=== PATIENT | male | born 1990 | race African-American/Black ===

== ENCOUNTER 2016-10-02 18:57 | Emergency (ER) | payer SELFPAY ==
[~2016-10-02 18:57] MED LIST: Iopamidol 370 76% 100 ML VIAL ONE
[2016-10-02] MEDS ORDERED: Ibuprofen 200 MG TAB ONE (19:38)
[2016-10-02 19:43] LABS: #Basophils 0.1 thou/uL (0.0-0.2); #Eosinphils 0.1 thou/uL (0.0-0.7); #Lymphocytes 2.5 thou/uL (1.20-3.40); #Monocytes 0.4 thou/uL (0.11-0.59); #Neutrophils 3.9 thou/uL (1.40-6.50); %Basophils 1.7 % (0.0-1.0); %Eosinophils 1.1 % (0.0-10.0); %Lymphocytes 35.6 % (21.0-51.0); %Monocytes 5.3 % (0.0-10.0); %Neutrophils 56.3 % (42.0-75.0); Hemoglobin 14.2 g/dL (14.0-18.0); Mean Corpuscular HGB CONC 33.7 g/dL (32.0-36.0); Mean Corpuscular Hemoglobin 33.3 pg (27.0-31.0); Mean Corpuscular Volume 98.9 fl (80.0-94.0); Mean Platelet Volume 11.3 fL (7.4-10.4); Platelet Count 161 thou/uL (130-400); RBC Distribution Width 13.6 % (11.5-14.5); Red Blood Cell (RBC) Count 4.26 mill/uL (4.70-6.10); White Blood Cell (WBC) Count 6.9 thou/uL (4.8-10.8)
[2016-10-02 19:57] LABS: ALT (SGPT) 10 U/L (0-55); AST (SGOT) 15 U/L (5-34); Albumin 3.7 g/dL (3.5-5.0); Alkaline Phosphatase 74 U/L (40-150); Anion Gap 15 mmol/L (10-20); BUN (Urea Nitrogen) 9 mg/dL (8.9-20.6); Bilirubin, Total 0.3 mg/dL (0.2-1.2); Calc. Creatinine Clearance 0 mL/min (70-130); Calcium 9.8 mg/dL (7.8-10.44); Carbon Dioxide 24 mmol/L (22-29); Chloride 105 mmol/L (98-107); Estimated GFR-MDRD Greater than 90; Globulin 2.8 g/dL (2.4-3.5); Glucose 100 mg/dL (70-105); Lipase 21 U/L (8-78); Potassium 4.3 mmol/L (3.5-5.1); Protein, Total 6.5 g/dL (6.0-8.3); Sodium 140 mmol/L (136-145)
[2016-10-02 20:03] LABS: Troponin I Less than 0.010 ng/mL (< 0.028)
--- NOTE | 2016-10-02 21:51 | CT ---
CTA OF THE THORAX UTILIZING IV CONTRAST 91 mL Isovue 370 and 3D reformatted imaging 10/02/16 INDICATION: Shortness of breath with elevated D-dimer. FINDINGS: No central or segmental pulmonary embolus is evident. The heart and great vessels appear within norm al limits. The lungs are clear. No acute osseous abnormality is evident. The visualized upper abdome n is unremarkable. IMPRESSION: No central or segmental pulmonary embolus. POS: JU[facility]
== END 2016-10-02 22:03 | disposition home or self-care (01) ==
LOC: NAV ERS 18:57
DX: F41.9 Anxiety disorder, unspecified (principal); F32.9 Major depressive disorder, single episode, unspecified; F17.210 Nicotine dependence, cigarettes, uncomplicated
CPT/HCPCS: 36415; 71275; 80053; 83690; 83880; 84484; 85025; 85379; 93005

== ENCOUNTER 2017-11-20 19:57 | Emergency (ER) | payer SELFPAY ==
[2017-11-20 21:03] LABS: Anion Gap 14 mmol/L (10-20); BUN (Urea Nitrogen) 16 mg/dL (8.9-20.6); CK (CPK) 231 U/L (30-200); Calc. Creatinine Clearance 0 mL/min (70-130); Calcium 9.9 mg/dL (7.8-10.44); Carbon Dioxide 22 mmol/L (22-29); Chloride 105 mmol/L (98-107); Estimated GFR-MDRD Greater than 90; Glucose 82 mg/dL (70-105); Sodium 137 mmol/L (136-145)
== END 2017-11-20 21:15 | disposition home or self-care (01) ==
LOC: NAV ERS 19:57
DX: T67.5XXA Heat exhaustion, unspecified, initial encounter (principal); E78.5 Hyperlipidemia, unspecified; F41.9 Anxiety disorder, unspecified; F32.9 Major depressive disorder, single episode, unspecified; F17.210 Nicotine dependence, cigarettes, uncomplicated; Z79.899 Other long term (current) drug therapy
CPT/HCPCS: 36415; 80048; 82550; 99284

== ENCOUNTER 2019-11-25 17:25 | Emergency (ER) | payer OTHER, SELFPAY ==
[2019-11-25] MEDS ORDERED: Ondansetron ODT 4 MG TAB ONE (17:37)
== END 2019-11-25 18:30 | disposition home or self-care (01) ==
LOC: NAV ERS 17:25
DX: R11.2 Nausea with vomiting, unspecified (principal); R51 Headache; E78.5 Hyperlipidemia, unspecified; E78.00 Pure hypercholesterolemia, unspecified; F41.9 Anxiety disorder, unspecified; F17.210 Nicotine dependence, cigarettes, uncomplicated
CPT/HCPCS: 99283; Q0162